=== PATIENT | male | born 1950 | race Caucasian/White ===

== ENCOUNTER → 2017-06-15 | Outpatient (CLI) | payer MEDICARE, BC ==
--- NOTE | 2017-06-15 16:42 | MR ---
EXAMINATION TYPE: MR knee LT wo con DATE OF EXAM: 06/15/2017 COMPARISON: Plain film 05/30/2017 HISTORY: Pain in left knee TECHNIQUE: Multiplanar, multisequence imaging of the left knee is performed without IV contrast. FINDINGS: MEDIAL MENISCUS: Posterior horn of the medial meniscus shows linear increased signal extending to the articular surface on sagittal image 28, additional linear increased signal present within the body o f the meniscus does not clearly communicate with the articular surface. LATERAL MENISCUS: There is linear increased signal which is somewhat more coarse in appearance involv ing the bulk of the lateral meniscus, irregular signal in the posterior horn could represent a comple x tear, there is signal extending to the articular surface. Laterally there is a cluster of grapes ap pearance, cystic area measuring approximately 15 x 6 x 3 cm compatible with large meniscal cyst. CRUCIATE LIGAMENTS: The anterior and posterior cruciate ligaments are intact and unremarkable. COLLATERAL LIGAMENTS: The medial collateral ligament and lateral collateral ligament complex are inta ct and unremarkable. EXTENSOR MECHANISM: Visualized quadriceps and patellar tendons are intact. EFFUSION: Some fluid present posterior to the patella and also within the anterior aspect of the niharika nt and intercondylar notch level POPLITEAL CYST: Minimal semimembranosus gastrocnemius cyst is present measuring only approximately 4 .5 x 0.5 x 0.5 cm. TRICOMPARTMENT SPACES: Intact. There is remodeling of the lateral compartment. 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 BONE MARROW SIGNAL: No focal abnormal marrow signal is appreciated. OTHER: No additional significant abnormality is appreciated. IMPRESSION: Osteoarthritis. Tears of the posterior horns of the menisci with meniscal cyst noted laterally. Addit ional findings above.
== END | disposition home or self-care (01) ==
LOC: RADMRIMAIN 12:37
PROVIDERS: ATTEND Orthopaedic Surgery
DX: S83.207A Unspecified tear of unspecified meniscus, current injury, left knee, initial encounter (principal); M17.12 Unilateral primary osteoarthritis, left knee; M71.22 Synovial cyst of popliteal space [Baker], left knee

== ENCOUNTER → 2017-06-24 | Outpatient (CLI) | payer BC, MEDICARE ==
[2017-06-24 17:28] LABS: Basophils % (A) 0 %; Eosinophils # (A) 0.1 k/uL (0-0.7); Eosinophils % (A) 1 %; HCT 46.2 % (39.0-53.0); HGB 14.9 gm/dL (13.0-17.5); Lymphocytes # (A) 1.6 k/uL (1.0-4.8); Lymphocytes % (A) 20 %; MCH 29.7 pg (25.0-35.0); MCHC 32.3 g/dL (31.0-37.0); Mean Platelet Volume 9.8; Monocytes # (A) 0.4 k/uL (0-1.0); Monocytes % (A) 5 %; Neutrophils # (A) 5.6 k/uL (1.3-7.7); Neutrophils % (A) 72 %; Platelet Count 154 k/uL (150-450); RBC 5.02 m/uL (4.30-5.90); RDW 12.8 % (11.5-15.5); WBC 7.7 k/uL (3.8-10.6)
[2017-06-24 17:34] LABS: Potassium 4.9 mmol/L (3.5-5.1)
== END | disposition home or self-care (01) ==
LOC: LABPAT 16:31
PROVIDERS: ATTEND Orthopaedic Surgery
DX: Z01.818 Encounter for other preprocedural examination (principal); R00.1 Bradycardia, unspecified; I44.0 Atrioventricular block, first degree; M23.92 Unspecified internal derangement of left knee; Z01.812 Encounter for preprocedural laboratory examination
CPT/HCPCS: 36415; 80051; 85025; 93005